=== PATIENT | female | born 2000 | race Hispanic/Latino ===

== ENCOUNTER 2021-07-11 23:14 | Emergency (ER) | payer SELFPAY ==
[2021-07-11 23:20] VITALS: BP 116/74
--- NOTE | 2021-07-12 05:47 | Emergency Department Report ---
- General Chief Complaint: Upper Respiratory Infection Stated Complaint: COVID SX Time Seen by Provider: 07/12/21 03:16 Source: patient Mode of arrival: Ambulatory Limitations: No Limitations - History of Present Illness Initial Comments: 20-year-old female planing with some of her friends 11 and notified her that is positive for coronavirus she reports having some cough and some congestion with no other significant symptoms request to be tested for COVID. Reports no chest pain, no palpitation, no diarrhea, no hemoptysis no hematemesis hematochezia Complaint: rhinorrhea Quality: dull Consistency: constant Improves With: nothing Worsens With: nothing Context: sick contacts Associated Symptoms: denies other symptoms, nasal congestion - Related Data Allergies Allergy/AdvReac Type Severity Reaction Status Date / Time No Known Allergies Allergy Unverified 07/11/21 23:21 ED Review of Systems ROS: Stated complaint: COVID SX Other details as noted in HPI Comment: All other systems reviewed and negative ED Past Medical Hx - Past Medical History Previous Medical History?: No - Surgical History Past Surgical History?: No ED Physical Exam - General Limitations: No Limitations General appearance: alert, in no apparent distress - Head Head exam: Present: atraumatic, normocephalic - Eye Eye exam: Present: normal appearance, PERRL, EOMI Pupils: Present: normal accommodation - ENT ENT exam: Present: mucous membranes moist - Neck Neck exam: Present: normal inspection - Respiratory Respiratory exam: Present: normal lung sounds bilaterally. Absent: respiratory distress - Cardiovascular Cardiovascular Exam: Present: regular rate, normal rhythm. Absent: systolic murmur, diastolic murmur, rubs, gallop - GI/Abdominal GI/Abdominal exam: Present: soft, normal bowel sounds - Extremities Exam Extremities exam: Present: normal inspection - Back Exam Back exam: Present: normal inspection - Neurological Exam Neurological exam: Present: alert, oriented X3 - Psychiatric Psychiatric exam: Present: normal affect, normal mood - Skin Skin exam: Present: warm, dry, intact, normal color. Absent: rash ED Course Vital Signs 07/11/21 23:17 Temperature 98.0 F Pulse Rate 97 H Respiratory 18 Rate Blood Pressure 116/74 O2 Sat by Pulse 100 Oximetry ED Medical Decision Making - Medical Decision Making This patient presents with lower respiratory symptoms concerning for viral syndrome including flu. Patient does not meet criteria for COVID-19. Doubt pneumonia, sepsis or other serious bacterial infection or acute emergent condition. Is otherwise well- appearing with acceptable vitals and reassuring physical examination and is safe to be discharged home. Patient lacks serious medical comorbidities that would require admission. Patient is nontoxic and although symptomatic otherwise safe to go home. Will provide strict return precautions and instructions on self isolation/quarantine and anticipatory guidance. Critical care attestation.: If time is entered above; I have spent that time in minutes in the direct care of this critically ill patient, excluding procedure time. ED Disposition Clinical Impression: URI (upper respiratory infection), Contact with and (suspected) exposure to co vid-19 Disposition: HOME / SELF CARE / HOMELESS Is pt being admited?: No Does the pt Need Aspirin: No Condition: Stable Instructions: Viral Respiratory Infection, [id number], Cough, Adult Additional Instructions: Given evaluate emergency department today for your congestion, cough and fevers. Your evaluation suggest that your symptoms are most likely due to a viral illness including coronavirus. which will improve on its own with rest and fluids. I would still recommend that you get follow-up testing at a COVID testing site to ensure status Recommend that you take ibuprofen 600 mg every 6 hours or Tylenol 12/05/1951 every 6 hours as needed for fever. If needed you can alternate these medications so that you take one medication every 3 hours. For instance at noon take ibuprofen and at 3 PM take Tylenol and then at 6 PM take ibuprofen. Please schedule an appointment for follow-up with your primary care physician within a week. Return to the emergency department if you experience worsening cough, uncontrollable fevers that not being controlled with Tylenol ibuprofen. Recurrent vomiting, chest pain, shortness of breath or any other symptoms suggesting that your condition is worsening. Referrals: [facility] [Provider Group] - 3-5 Days PRIMARY CARE, [Primary Care Provider] - 3-5 Days Forms: Work/School Release Form(ED)
== END 2021-07-12 05:29 | disposition home or self-care (01) ==
LOC: ED 23:14
DX: J06.9 Acute upper respiratory infection, unspecified (principal); Z20.822 Contact with and (suspected) exposure to COVID-19
CPT/HCPCS: 99282